=== PATIENT | female | born 1985 | race Caucasian/White ===

== ENCOUNTER 2025-02-21 16:42 | Emergency (ER) | payer MEDICAID ==
[~2025-02-21] VITALS: Ht 162.6 cm; Wt 85.0 kg
[2025-02-21 16:49] VITALS: O2SAT 100
[2025-02-21 18:04] LABS: CLARITY URINE CLEAR (CLEAR); COLOR URINE YELLOW (YELLOW); GLUCOSE URINE NEGATIVE (NEGATIVE); KETONES URINE NEGATIVE (NEGATIVE); LEUKOCYTE ESTERASE URINE NEGATIVE (NEGATIVE); NITRITE URINE NEGATIVE (NEGATIVE); OCCULT BLOOD URINE NEGATIVE (NEGATIVE); PH URINE 6.5 (4.5-8.0); PROTEIN URINE NEGATIVE (NEGATIVE); SPECIFIC GRAVITY URINE 1.005 (1.005-1.030); UROBILINOGEN URINE 0.2 E.U./dL (0.2-1.0)
[2025-02-21] MEDS ORDERED: METR70GE27 VG (18:11)
[2025-02-21 18:45] VITALS: BP 112/76; PULSE 61; RESP 16; TEMP 36.7; O2SAT 100
[2025-02-21] MEDS: DOXYCYCLINE HYCLATE 100MG CAPSULE PO ONE (18:48)
[2025-02-21] MEDS: CEFTRIAXONE SODIUM 500MG VIAL IM ONE (18:48)
[2025-02-24 04:12] LABS: CHLAMYDIA TRACHOMATIS NAA Negative (Negative); NEISSERIA GONORRHOEAE NAA Negative (Negative)
== END 2025-02-21 18:50 | disposition home or self-care (01) ==
LOC: ER 16:42
DX: N76.0 Acute vaginitis (principal); B96.89 Other specified bacterial agents as the cause of diseases classified elsewhere; Z90.49 Acquired absence of other specified parts of digestive tract; Z88.5 Allergy status to narcotic agent
CPT/HCPCS: 99283; 87491; 87591; 81003; 81025; 96372; J0696